=== PATIENT | female | born 1955 | race Caucasian/White ===

== ENCOUNTER 2023-01-24 07:33 | Day surgery (SDC) | payer OTHER ==
[~2023-01-24] VITALS: Ht 152.4 cm; Wt 65.3 kg
[2023-01-24] MEDS ORDERED: MIDAZOLAM HCL 5 MG/5 ML VIAL ONE (08:21)
[2023-01-24] MEDS ORDERED: MEPERIDINE 100 MG INJ. 100 MG/ML VIAL ONE (08:21)
[2023-01-24 12:13] VITALS: O2SAT 98
[2023-01-24 12:15] VITALS: BP_SYST 113; PULSE 74; RESP 20; TEMP 97.2
== END 2023-01-24 10:00 | disposition home or self-care (01) ==
LOC: SMU 07:33 → SDS 07:33
PROVIDERS: ATTEND Internal Medicine Gastroenterology
DX: K59.04 Chronic idiopathic constipation (principal); K64.8 Other hemorrhoids; I10 Essential (primary) hypertension; E11.9 Type 2 diabetes mellitus without complications; Z90.710 Acquired absence of both cervix and uterus; Z79.899 Other long term (current) drug therapy
CPT/HCPCS: 45378; 99152; 82962; G0378; J2250; J2175